=== PATIENT | male | born 1945 | race Caucasian/White ===

== ENCOUNTER 2018-05-23 21:26 | Observation (INO) | payer OTHER, MEDICARE ==
[2018-05-24] MEDS ORDERED: NACL 0.9% 3 ML SYG IV
[2018-05-24] MEDS ORDERED: ONDANSETRON 4 MG INJ IV
[2018-05-24] MEDS ORDERED: ACETAMINOPHEN 325 MG TAB PO
[2018-05-24] MEDS ORDERED: DOCUSATE SODIUM 100 MG CAP PO
[2018-05-24] MEDS ORDERED: BISACODYL (EC) 5 MG TAB PO
[2018-05-24 00:08] LABS: ADD MAN DIFF? NO
[2018-05-24 00:10] LABS: WHITE BLOOD COUNT 10.7 10^3/ul (4.8-10.8)
[2018-05-24 00:10] LABS: BASOPHIL # 0.1 10^3/ul (0.0-0.1); BASOPHILS % 0.5 % (0.0-2.0); EOSINOPHILS # 0.3 10^3/ul (0.0-0.5); EOSINOPHILS % 2.6 % (0.0-7.0); HEMATOCRIT 40.3 % (42.0-52.0); HEMOGLOBIN 13.5 g/dl (14.0-18.0); LYMPHOCYTES # 2.9 10^3/ul (0.8-2.9); LYMPHOCYTES % 27.4 % (15.0-51.0); MEAN CORPUSCULAR HEMOGLOBIN 31.3 pg (29.0-33.0); MEAN CORPUSCULAR HGB CONC 33.5 g/dl (32.0-37.0); MEAN CORPUSCULAR VOLUME 93.3 fl (82.0-101.0); MEAN PLATELET VOLUME 9.7 fl (7.4-10.4); MONOCYTE # 1.1 10^3/ul (0.3-0.9); MONOCYTES % 10.2 % (0.0-11.0); NEUTROPHIL # 6.3 10^3/ul (1.6-7.5); NEUTROPHILS % 58.8 % (39.0-77.0); PLATELET COUNT 264 10^3/UL (140-415); RED BLOOD COUNT 4.32 10^6/ul (4.70-6.10); RED CELL DISTRIBUTION WIDTH 11.9 % (11.5-14.5)
[2018-05-24 00:29] LABS: ALANINE AMINOTRANSFERASE 16 IU/L (13-69); ALBUMIN 3.4 g/dl (3.3-4.9); ALBUMIN/GLOBULIN RATIO 0.97; ALKALINE PHOSPHATASE 80 IU/L (42-121); ANION GAP 10 (5-13); ASPARTATE AMINO TRANSFERASE 17 IU/L (15-46); BILIRUBIN,INDIRECT 0.1 mg/dl (0-1.1); BILIRUBIN,TOTAL 0.1 mg/dl (0.2-1.3); BLOOD UREA NITROGEN 16 mg/dl (7-20); CALCIUM 9.1 mg/dl (8.4-10.2); CARBON DIOXIDE 26 mmol/L (21-31); CHLORIDE 105 mmol/L (97-110); CHOLESTEROL 175 mg/dl (100-200); CREATININE 1.05 mg/dl (0.61-1.24); GLUCOSE 114 mg/dl (70-220); HDL CHOLESTEROL 29 mg/dl (31-75); LDL CHOLESTEROL,CALCULATED 113 mg/dl; MAGNESIUM 2.1 mg/dl (1.7-2.5); POTASSIUM 4.2 mmol/L (3.5-5.1); SODIUM 141 mmol/L (135-144); TOTAL PROTEIN 6.9 g/dl (6.1-8.1); TRIGLYCERIDES 167 mg/dl (0-149)
[2018-05-24 01:49] LABS: HEMOGLOBIN A1C 5.4 % (0-5.9)
[2018-05-24 05:25] LABS: ADD MAN DIFF? NO
[2018-05-24 05:32] LABS: BASOPHIL # 0.1 10^3/ul (0.0-0.1); BASOPHILS % 0.6 % (0.0-2.0); EOSINOPHILS # 0.3 10^3/ul (0.0-0.5); EOSINOPHILS % 2.9 % (0.0-7.0); HEMATOCRIT 41.6 % (42.0-52.0); HEMOGLOBIN 13.9 g/dl (14.0-18.0); LYMPHOCYTES # 2.8 10^3/ul (0.8-2.9); LYMPHOCYTES % 29.4 % (15.0-51.0); MEAN CORPUSCULAR HGB CONC 33.4 g/dl (32.0-37.0); MEAN CORPUSCULAR VOLUME 92.9 fl (82.0-101.0); MEAN PLATELET VOLUME 9.9 fl (7.4-10.4); MONOCYTE # 0.9 10^3/ul (0.3-0.9); MONOCYTES % 8.9 % (0.0-11.0); NEUTROPHIL # 5.6 10^3/ul (1.6-7.5); NEUTROPHILS % 57.7 % (39.0-77.0); PLATELET COUNT 246 10^3/UL (140-415); RED BLOOD COUNT 4.48 10^6/ul (4.70-6.10)
[2018-05-24 05:32] LABS: WHITE BLOOD COUNT 9.7 10^3/ul (4.8-10.8)
[2018-05-24 06:03] LABS: ANION GAP 8 (5-13); BLOOD UREA NITROGEN 16 mg/dl (7-20); CALCIUM 9.1 mg/dl (8.4-10.2); CARBON DIOXIDE 25 mmol/L (21-31); CHLORIDE 107 mmol/L (97-110); CREATININE 0.98 mg/dl (0.61-1.24); GLUCOSE 100 mg/dl (70-220); POTASSIUM 4.4 mmol/L (3.5-5.1); SODIUM 140 mmol/L (135-144)
[2018-05-24 06:11] LABS: FREE T3 3.95 pg/ml (2.77-5.27)
[2018-05-24 06:12] LABS: FREE T4 (FREE THYROXINE) 0.75 ng/dl (0.78-2.44)
[2018-05-24 08:02] LABS: CREATINE KINASE 84 IU/L (23-200)
[2018-05-24 08:13] LABS: CK INDEX 1.3; CK-MB 1.13 ng/ml (0.0-2.4); TROPONIN-I < 0.012 ng/ml (0.000-0.120)
[2018-05-24] MEDS ORDERED: LORAZEPAM 2 MG INJ IV (08:30)
[2018-05-24 09:07] LABS: ETHANOL < 10.0 mg/dl (0-0)
[2018-05-24] MEDS ORDERED: LEVOTHYROXINE 125 MCG TAB PO (10:00)
== END 2018-05-24 10:32 | disposition left against medical advice (07) ==
LOC: 6WM 21:26
DX: R55 Syncope and collapse (principal); E03.9 Hypothyroidism, unspecified
CPT/HCPCS: 71045; 80048; 80053; 80061; 80307; 82550; 82553; 83036; 83735; 84439; 84443; 84481; 84484; 85025; 87081; 93306; 93880; 99217